=== PATIENT | female | born 1945 | race Caucasian/White ===

== ENCOUNTER 2020-03-16 11:36 | Observation (INO) | payer MEDICARE ==
[~2020-03-16] VITALS: Ht 162.6 cm; Wt 56.6 kg
--- NOTE | 2020-03-16 11:40 | NUR ---
PT CHANGED TO GOWN. MONITORS APPLIED. NIH SCALE DONE. SCORE 0. NO DEFICITS NOTED. PTS DAUGHTER REPORTS THERE WAS LEFT EYE DROOPING PRIOR TO ARRIVAL. LAST KNOW WELL 1115. AO X 3. SKIN PINK WARM AND DRY. PT HAS HISTORY OF DIZZINESS BUT REPORTS THIS EPISODE IS DIFFERENT.
--- NOTE | 2020-03-16 11:55 | NUR ---
LKW 1125 TODAY LEFT EYE DROOP WITH MILD EXPRESSIVE ASPHASIA. NO LOC NO PAIN AT THIS TIME. STROKE ALERT CALLED AND PATIENT TRANSPORTED TO RADIOLOGY. MD AT BEDSIDE FOR EVAL
--- NOTE | 2020-03-16 12:01 | NUR ---
PT TAKEN VIA STRETCHER TO CT
--- NOTE | 2020-03-16 12:08 | NUR ---
PT RETURNED FROM CT. TELE NEUROLOGY ON THE SCREEN TO SPEAK WITH PATIENT.DAUGHTER AT BEDSIDE.
[2020-03-16 12:11] LABS: HEMATOCRIT 45.3 % (37.0-47.0); HEMOGLOBIN 14.9 g/dl (12.0-16.0); IMMATURE GRANULOCYTES 0.4 % (0.0-5.0); MEAN CELL VOLUME 86.5 fL CALC (80.0-100.0); MEAN CORPUSCULAR HGB 28.4 pG CALC (26.0-32.0); MEAN CORPUSCULAR HGB CONC 32.9 g/dL CAL (32.0-36.0); NEUT# 5.5 thou/uL (2.00-7.15); RED BLOOD COUNT 5.24 mill/uL (4.20-5.60); RED CELL DISTRI WIDTH 12.7 % (11.5-15.5)
[2020-03-16 12:39] LABS: ACT PARTIAL THROMBO TIME 26.1 SECONDS (20.0-32.5); PROTHROMBIN TIME 10.3 SECONDS (9.0-12.5)
[2020-03-16 12:46] LABS: ALBUMIN 4.5 g/dL (3.2-5.0); ALKALINE PHOSPHATASE 60 u/l (38-126); ANION GAP 15 (6-22 (CALC)); BILIRUBIN, TOTAL 0.4 mg/dL (0.0-1.4); BUN 18 mg/dL (8-23); BUN/CREATININE RATIO 18 (12-20 (CALC)); CARBON DIOXIDE 21 mmol/l (22-30); CHLORIDE 105 mmol/l (95-108); CPK 39 u/l (30-165); ETHYL ALCOHOL 0 mg/dl (0-30); GFR 54 ML/MIN (>=60 (CALC)); GFR FOR AFR.AMER. > 60 ML/MIN (>=60 (CALC)); LIPASE 141 u/l (23-300); MAGNESIUM 1.9 mg/dL (1.6-2.3); POTASSIUM 4.1 mmol/l (3.5-5.1); SGOT/AST 27 u/l (9-36); SODIUM 137 mmol/l (137-146); TOTAL PROTEIN 7.7 g/dL (6.3-8.2)
--- NOTE | 2020-03-16 13:10 | NUR ---
PT RESTING ON STRETCHER. WARM BLANKET GIVEN
[2020-03-16 13:29] LABS: URINE BILIRUBIN - DIPSTICK NEGATIVE (NEGATIVE); URINE BLOOD DIPSTICK NEGATIVE (NEGATIVE); URINE COLOR YELLOW; URINE GLUCOSE - DIPSTICK NEGATIVE (NEGATIVE); URINE KETONE NEGATIVE (NEGATIVE); URINE LEUK ESTERASE NEGATIVE (NEGATIVE); URINE NITRITE - DIPSTICK NEGATIVE (Negative); URINE PH 5.5 (4.5-8.0); URINE PROTEIN - DIPSTICK NEGATIVE (NEG-TRACE); URINE SPECIFIC GRAVITY <=1.005; URINE UROBILINOGEN - DIPSTICK 0.2 E.U./dL (0.2)
[2020-03-16 13:32] LABS: BARBITURATES NEGATIVE (NEGATIVE); COCAINE NEGATIVE (NEGATIVE); METHADONE NEGATIVE (NEGATIVE); OXCYCODONE NEGATIVE (NEGATIVE); TETRAHYDROCANNABIONOL NEGATIVE (NEGATIVE); TRICYLIC ANTIDEPRESSANTS NEGATIVE (NEGATIVE)
--- NOTE | 2020-03-16 14:37 | NUR ---
REPORT CALLED TO [facility]
[2020-03-16] MEDS ORDERED: LEVOTHYROXIN75 MC1 PO (14:44)
--- NOTE | 2020-03-16 14:48 | NUR ---
PT TAKEN VIA WHEELCHAIR TO BATHROOM. NO COMPLAINTS OF IDZZINESS, STEADY GAIT
--- NOTE | 2020-03-16 14:55 | NUR ---
PT TAKEN VIA WHEELCHAIR, TELEMETRY IN PLACE TO MED SURG
[2020-03-16 15:10] VITALS: BP 163/70
--- NOTE | 2020-03-16 16:00 | NUR ---
PT ARRIVES TO ROOM 262 VIA WHEELCHAIR FROM ER ACCOMPANIED BY HER NURSE [facility]. PT IS AWAKE, ALERT, ORIENTED X 3, NEGATIVE NIH SCALE. PT NOT SEEN TO HAVE LEFT SIDED FACIAL DROOP OR WORD-FINDING DIFFICULTY.
--- NOTE | 2020-03-16 16:54 | NUR ---
PT IS ON TELEMETRY, SEEN TO HAVE BRADYCARDIC EPISODES THAT DROP HER INTO THE 30s AND 40s. LEADS CHECKED, NO CHANGE. LORNE RUIZ AWARE. TELE STRIPS PROVIDED FROM ER. PT REMAINS ASYMPTOMATIC.
[2020-03-16 18:47] VITALS: BP 143/75
--- NOTE | 2020-03-16 19:30 | NUR ---
PATIENT RESTING IN BED AT THIS TIME SITTING UP WATCHING TV. AWAKE ALERT AND ORIENTEDX3. PATIENT WITH NO COMPLAINTS OR CONCERNS AT THIS TIME. TELE MONITOR IN PLACE. SPEECH IS CLEAR. HAND GRASPS ARE EQUAL AND STRONG. NO REPORTED WEAKNESS. IV SITE TO RIGHT AC AND TO LEFT WRIST-SITE APPEAR HEALTHY AT THIS TIME. PROVIDED PATIENT WITH COFFEE PER PATIENT REQUEST. SAFETY PRECAUTIONS REINFORCED. CALL LIGHT IN REACH. WILL CONT TO MONITOR.
[2020-03-17] VITALS (7 sets, daily range): BP systolic 104–132; BP diastolic 53–79
--- NOTE | 2020-03-17 00:50 | NUR ---
PATIENT RESTING IN BED-ASKING THAT THE IV SITE TO HER LEFT WRIST BE REMOVED-C/O PAIN AT SITE. IV SITE REMOVED PER PATIENT REQUEST-CATH INTACT. STILL WITH SALINE LOCK TO RAC INTACT AND APPEARS HEALTHY. PROVIDED WITH CEREAL BAR FOR SNAK. TELE MONITOR IN PLACE. CALL LIGHT IN REACH. WILL CONT TO MONITOR.
--- NOTE | 2020-03-17 03:17 | NUR ---
PATIENT RESTING IN BED-APPEARS SLEEPING AT THIS TIME. SALINE LOCK TO RIGHT AC INTACT. TELE MONITOR IN PLACE. CALL LIGHT IN REACH. WILL CONT TO MONITOR.
[2020-03-17 05:24] LABS: HEMATOCRIT 43.4 % (37.0-47.0); HEMOGLOBIN 14.1 g/dl (12.0-16.0); IMMATURE GRANULOCYTES 0.3 % (0.0-5.0); MEAN CELL VOLUME 86.6 fL CALC (80.0-100.0); MEAN CORPUSCULAR HGB 28.1 pG CALC (26.0-32.0); MEAN CORPUSCULAR HGB CONC 32.5 g/dL CAL (32.0-36.0); NEUT# 3.79 thou/uL (2.00-7.15); RED BLOOD COUNT 5.01 mill/uL (4.20-5.60); RED CELL DISTRI WIDTH 12.7 % (11.5-15.5)
[2020-03-17 05:40] LABS: ALKALINE PHOSPHATASE 58 u/l (38-126); ANION GAP 11 (6-22 (CALC)); BUN 14 mg/dL (8-23); BUN/CREATININE RATIO 15 (12-20 (CALC)); CARBON DIOXIDE 23 mmol/l (22-30); CHLORIDE 106 mmol/l (95-108); GFR 54 ML/MIN (>=60 (CALC)); GFR FOR AFR.AMER. > 60 ML/MIN (>=60 (CALC)); POTASSIUM 4.5 mmol/l (3.5-5.1); SGOT/AST 26 u/l (9-36); SODIUM 135 mmol/l (137-146); TOTAL PROTEIN 6.7 g/dL (6.3-8.2)
[2020-03-17 05:52] LABS: BILIRUBIN, TOTAL 0.6 mg/dL (0.0-1.4)
--- NOTE | 2020-03-17 09:14 | NUR ---
CALLED IN CONSULTATION TO DR. EDWARDS OFFICE. SPOKE TO SARAH GAVE PT INFORMATION AND SHE STATED SHE WILL LET THE DOCTOR KNOW.
--- NOTE | 2020-03-17 09:55 | NUR ---
PT AWAKE, ALERT, ASYMPTOMATIC FOR NEUROLOGICAL ISSUES. PT HAS AMBULATED HALLWAY WITH PT, HAS BEEN TALKING ON PHONE WITH FAMILY. NO COMPLAINTS, NO EVIDENCE OF DISTRESS.
[2020-03-17] MEDS ORDERED: ASPIRIN ADULT L81 M2 PO (10:54)
[2020-03-17] MEDS ORDERED: LEVOTHYROXIN50 MCG PO (10:54)
[2020-03-17] MEDS ORDERED: LIPITOR10 M1 PO (10:54)
--- NOTE | 2020-03-17 11:54 | NUR ---
PT SEEN BY DR MARCELO THIS MORNING, DISCUSSED RISK FACTORS FOR STROKE/TIA. ALSO, HE WANTED PT TO BE SEEN BY DR EDWARDS PRIOR TO BEING DISCHARGED TO HOME THIS AFTERNOON. PT REMAINS BRADYCARDIC, ASYMPTOMATIC.
--- NOTE | 2020-03-17 12:24 | NUR ---
PT REMAINS AT REST IN THE BED, NO DISTRESS, NO SYMPTOMS R/T BRADYCARDIA/CVA/TIA.
--- NOTE | 2020-03-17 16:02 | NUR ---
PT SEEN BY LORNE JOSHI FROM DR EDWARDS'S OFFICE. PT WAS TOLD SHE COULD GO HOME AFTER EVALUATION, BUT THE RECOMMENDATION WAS ONE MORE NIGHT. PT NOT PLEASED, BUT WILL STAY. PT REMAINS ASYMPTOMATIC FOR TIA/BRADYCARDIC SYMPTOMS.
--- NOTE | 2020-03-17 19:31 | NUR ---
PATIENT UP IN ROOM AND STEADY ON HER FEET. ALERT AND ORIENTEDX3. APPEARS SOMEWHAT DISAPPOINTED THAT SHE WASN'T DISCHARGED HOME TODAY. ATTEMPTED TO EDUCATE PATIENT TO THE REASONS WHY THEY WANTED HER TO STAY ANOTHER NIGHT-REGUARDING OBTAINING PMH RECORDS FROM OTHER FACILITIES AND OR DOCTORS, CONT TO MONITOR TELE AND LABS. CONT TO OBSERVE FOR ANY FURTHER SX AND MONITORING VS. VERBALIZES UNDERSTANDING. TELE MONITOR IN PLACE. SALINE LOCK TO RAC INTACT AND IS HEALTHY AT THIS TIME. SAFETY PRECAUTIONS REINFORCED. CALL LIGHT IN REACH. WILL CONT TO MONITOR.
[2020-03-18] VITALS: BP 119/73
--- NOTE | 2020-03-18 00:56 | NUR ---
PATIENT RESTING IN BED AT THIS TIME. WATCHING TV WITH NO COMPLAINTS AT THIS TIME. TELE MONITORING IN PLACE. SALINE LOCK TO RIGHT AC INTACT AND REMAINS HEALTHY. CALL LIGHT IN REACH. WILL CONT TO MONITOR.
[2020-03-18 04:00] VITALS: BP 122/79
--- NOTE | 2020-03-18 04:03 | NUR ---
PATIENT RESTING IN BED AT THIS TIME. NO COMPLAINTS OR CONCERNS AT THIS TIME. TELE MONITOR IN PLACE. SALINE LOCK TO RIGHT AC INTACT AND IS HEALTHY AT THIS TIME. CALL LIGHT IN REACH. WILL CONT TO MONITOR.
--- NOTE | 2020-03-18 07:16 | NUR ---
CHNAGE OF SHIFT REPORT RECEIVED FROM ZEINAB HANSEN. PT IS SITTING UP IN BED WATCHING TELEVISION. PT DENIES NUMBNESS,TINGLING, HEADACHE OR BLURRED VISION. PT IS ABLE TO MOVE ALL EXTREMITIES WITH NO LIMITATIONS NOTED. FACE EXPRESSION SYMMETRICAL. HEALTH INFORMATICS ADVISOR WILL CONTINUE TO MONITOR.
[2020-03-18 07:40] VITALS: BP 115/58
[2020-03-18 10:40] VITALS: BP 119/69
[2020-03-18] MEDS ORDERED: PLAVIX75 MG PO (10:58)
--- NOTE | 2020-03-18 12:00 | NUR ---
DISCHARGE PLAN DISCUSSED WITH PT. PRESCRIPTIONS REVIEWED WITH PT. PT IS ANXIOUS TO GO HOME. PT IS ABLE TO VERBALIZE UNDERSTANDING OF DISCHARGE ORDERS. ELLY ALMENDAREZ CALLED TALENT COORDINATOR. POC REVIEWED WITH YADIRA. YADIRA REQUESTING THAT PRESCRIPTIONS BE E-SCRIBED TO [facility] OR [facility]. JAILENE RUIZ NOTIFIED. ORDERS RECEIVED TO FAX TO [facility]. PT STATES THAT SHE PREFERS [facility] OR [facility]. PACKING ROOM WORKER [employer] IS WORKING ON GETTING PT'S MEDS DELIVERED.
--- NOTE | 2020-03-18 13:25 | NUR ---
Discharge instructions given. Patient verbalizes understanding of same. Discharged in stable condition via Wheelchair to Home with family. All belongings sent with pt.
== END 2020-03-18 13:25 | disposition home or self-care (01) ==
LOC: ED 11:36 → ED-I 14:06 → MS2 14:06
PROVIDERS: Nurse Practitioner Family; ADMIT Internal Medicine; ATTEND Internal Medicine
DX: G45.9 Transient cerebral ischemic attack, unspecified (principal); R00.1 Bradycardia, unspecified; I49.3 Ventricular premature depolarization; I10 Essential (primary) hypertension; E11.9 Type 2 diabetes mellitus without complications; E03.9 Hypothyroidism, unspecified; E78.5 Hyperlipidemia, unspecified; G70.00 Myasthenia gravis without (acute) exacerbation; F17.290 Nicotine dependence, other tobacco product, uncomplicated
CPT/HCPCS: G0378; J2997; Q9967